=== PATIENT | female | born 1995 | race Caucasian/White ===

== ENCOUNTER 2017-12-30 09:38 | Emergency (ER) | payer BC ==
[2017-12-30 10:02] VITALS: BMI 26.7
[2017-12-30 10:04] VITALS: RESP 18; TEMP 98.1; O2SAT 99
--- NOTE | 2017-12-30 10:54 | ED PDOC ---
Arrival/HPI - General Chief Complaint: Back Pain Time Seen by Provider: 12/30/17 10:25 Historian: Patient - History of Present Illness Narrative History of Present Illness (Text): 12/30/17 10:53 22-year-old female presents today with right-sided neck pain. Patient states she woke up from sleep turned her head to the right and felt severe pain in the right side of the neck. Patient states she has pain with range of motion of the neck. She is complaining of pain and pressure sensation to the right side of the neck. Patient denies any trauma or injury. Denies fevers or chills. Denies headaches dizziness or weakness. She denies numbness weakness or tingling in the extremities. No chest pain or shortness of breath. No medications have been taken for pain at home. Patient states she was feeling fine when she went to sleep and when she woke up and turned her head while laying in the bed she developed severe pain in the right side of the neck. pt states pain is worse when she attempts to turn her head. Past Medical History - Provider Review Nursing Documentation Reviewed: Yes - Travel History Have you recently traveled outside [place] w/in the past 3 mons?: No - Infectious Disease Hx of Infectious Diseases: None - Psychiatric Hx Substance Use: No - Anesthesia Hx Anesthesia: No Family/Social History - Physician Review Nursing Documentation Reviewed: Yes Family/Social History: Unknown Family HX Smoking Status: Never Smoked Hx Alcohol Use: No Hx Substance Use: No Allergies/Home Meds Allergies/Adverse Reactions: Allergies No Known Allergies Allergy (Verified 12/30/17 10:02) Review of Systems - Review of Systems Constitutional: absent: Fatigue, Fevers Respiratory: absent: SOB, Cough Cardiovascular: absent: Chest Pain, Palpitations Gastrointestinal: absent: Abdominal Pain, Nausea, Vomiting Genitourinary Female: absent: Dysuria Musculoskeletal: Neck Pain. absent: Arthralgias, Back Pain Skin: absent: Rash, Pruritis Neurological: absent: Headache, Dizziness Psychiatric: absent: Anxiety, Depression Physical Exam Vital Signs Reviewed: Yes Vital Signs Temp Pulse Resp BP Pulse Ox 12/30/17 10:03 98.1 F 93 H 18 139/93 H 99 Temperature: Afebrile Blood Pressure: Hypertensive Pulse: Regular Respiratory Rate: Normal Appearance: Positive for: Well-Appearing, Non-Toxic, Comfortable Pain Distress: None Mental Status: Positive for: Alert and Oriented X 3 - Systems Exam Head: Present: Atraumatic Mouth: Present: Moist Mucous Membranes Neck: Present: Paraspinal Tenderness (+ right sided paraspinal tenderness; ), Trachea Midline. No: Normal Range of Motion (torticollis noted; stiff full rom ), MIDLINE TENDERNESS Respiratory/Chest: Present: Clear to Auscultation Cardiovascular: Present: Regular Rate and Rhythm Back: Present: Normal Inspection. No: Midline Tenderness, Paraspinal Tenderness Upper Extremity: Present: Normal Inspection, Normal ROM, Neurovascularly Intact, Capillary Refill < 2s. No: Swelling Neurological: Present: GCS=15, Speech Normal Skin: Present: Warm, Dry, Normal Color. No: Rashes Psychiatric: Present: Alert, Oriented x 3 Medical Decision Making ED Course and Treatment: 12/30/17 10:56 Patient nontoxic well-appearing in no distress with stable vital signs. Patient with right-sided neck pain upon awakening this morning. no trauma or injury. Toradol, Flexeril Patient reassessment: Feeling better with medications, Muscle strength 5 out of 5 bilaterally. pt with improved ROM of neck to the right. states pain is improved. I advised to followup with the primary care physician within the next 2 days. Return if symptoms worsen persist or new symptoms develop. advised heating pad, massage, slowly increasing ROM of neck. Patient verbalizes understanding of discharge instructions and need for immediate followup. all aspects of this case were discussed the attending of record. Impression: Neck pain Motrin every 6 hours as needed for pain Flexeril one tablet every 8 hours as needed for muscle spasms: May cause drowsiness Followup with the orthopedist within the next 2 days Followup with primary care physician within the next 2 days Return if symptoms worsen persist or if new symptoms develop Reassessment Condition: Re-examined, Improved - Medication Orders Current Medication Orders: Discontinued Medications Cyclobenzaprine HCl (Flexeril) 10 mg PO STAT STA Stop: 12/30/17 10:26 Last Admin: 12/30/17 10:45 Dose: 10 mg Ketorolac Tromethamine (Toradol) 60 mg IM STAT STA Stop: 12/30/17 10:26 Last Admin: 12/30/17 10:45 Dose: 60 mg MAR Pain Assessment Document 12/30/17 10:45 EQ (Rec: 12/30/17 10:45 EQ [id number]) Pain Reassessment Is this a pain reassessment? No Sleep Is patient sleeping during reassessment? No Presence of Pain Presence of Pain Yes IM Administration Charges Document 12/30/17 10:45 EQ (Rec: 12/30/17 10:45 EQ [id number]) Charges for Administration # of IM Administrations 1 Disposition/Present on Arrival - Present on Arrival Any Indicators Present on Arrival: No History of DVT/PE: No History of Uncontrolled Diabetes: No Urinary Catheter: No History of Decub. Ulcer: No History Surgical Site Infection Following: None - Disposition Have Diagnosis and Disposition been Completed?: Yes Diagnosis: Neck pain Disposition: HOME/ ROUTINE Disposition Time: 10:52 Patient Plan: Discharge Patient Problems: Current Active Problems Problem Status Onset Neck pain Acute Condition: GOOD Discharge Instructions (ExitCare): Neck Pain Additional Instructions: Motrin every 6 hours as needed for pain Flexeril one tablet every 8 hours as needed for muscle spasms: May cause drowsiness Followup with the orthopedist within the next 2 days Followup with primary care physician within the next 2 days Return if symptoms worsen persist or if new symptoms develop Prescriptions: Cyclobenzaprine [Cyclobenzaprine HCl] 10 mg PO Q8 #10 tab Ibuprofen [Motrin] 600 mg PO Q6H PRN #20 tab PRN Reason: pain/fever reduction Referrals: Geetha Rodriguez MD [Medical Doctor] - Follow up with primary [facility] [Outside] - Follow up with primary Jake Lincoln MD [Staff Provider] - Follow up with primary Forms: [email or web address] ([place]), SCHOOL NOTE
[2017-12-30 11:04] VITALS: BP 137/85; PULSE 86
== END 2017-12-30 12:05 | disposition home or self-care (01) ==
LOC: ED 09:38
DX: M54.2 Cervicalgia (principal)
CPT/HCPCS: 96372; 99283; J1885